=== PATIENT | female | born 1990 | race Caucasian/White ===

== ENCOUNTER 2022-05-15 17:50 | Emergency (ER) | payer MEDICAID, OTHER ==
[~2022-05-15] VITALS: Ht 157.5 cm; Wt 60.0 kg
[2022-05-15] MEDS ORDERED: METOCLOPRAMIDE HCL 5MG/ml INJ 2ml VIAL IM ONE (18:15)
[2022-05-15] MEDS ORDERED: HYDROcodone-ACET 5/325MG TAB PO ONE (18:15)
[2022-05-15 18:34] VITALS: BP 133/95
[2022-05-15] MEDS ORDERED: KETOROLAC TROMETH 30 MG/ML 1ML VIAL IM ONE (19:30)
[2022-05-15] MEDS ORDERED: ONDANSETRON ODT 4 MG TAB PO ONE (19:30)
[2022-05-15] MEDS ORDERED: diphenhdrAMINE HCL 25 MG CAP PO ONE (19:45)
== END 2022-05-15 22:07 | disposition left against medical advice (07) ==
LOC: ER 17:50
DX: G43.909 Migraine, unspecified, not intractable, without status migrainosus (principal)
CPT/HCPCS: 81025; 96372; 99284; J1885; J2765; Q0162